=== PATIENT | male | born 1965 | race American Indian/Alaskan Native ===

== ENCOUNTER 2016-12-13 13:56 | Outpatient (CLI) | payer OTHER ==
--- NOTE | 2016-12-14 07:47 | XRay Report ---
LEFT KNEE, 3 views: History: Left knee pain and swelling. No comparison. A large joint effusion extends to the suprapatellar bursa. There is moderate anterior soft tissue swelling. The bony structures are intact. No fracture, bone lesion or advanced degenerative changes. There is suggestion of an osteochondral defect along the anterior surface of the lateral femoral condyle. IMPRESSION: Soft tissue swelling. Large joint effusion. Possible osteochondral defect on the lateral femoral condyle. Consider further evaluation with MRI left knee without contrast.
== END 2016-12-13 13:57 | disposition home or self-care (01) ==
LOC: XRAY 13:56
PROVIDERS: ATTEND Internal Medicine
DX: M25.562 Pain in left knee (principal); M25.462 Effusion, left knee